=== PATIENT | male | born 1980 | race Caucasian/White ===

== ENCOUNTER 2021-04-27 21:42 | Emergency (ER) | payer OTHER ==
[2021-04-27 21:57] VITALS: BP 125/75
--- NOTE | 2021-04-27 22:30 | ED Physician Documentation ---
History of Present Illness - Stated complaint Stated Complaint: FIT - Chief complaint Chief Complaint: General - History obtained from History obtained from: Patient - Additonal information Additional information: 40yM presents from [facility] for medical evaluation. He was brought in to [facility] 04/27/20 and found to have a left sided ulcer on his lower leg. patient states it has been present for 10 months and he does not have primary care doctor and has not been sure what to do about it. denies fever, numbness, weakness, swelling, ankle pain. Review of Systems Ten Systems: 10 systems reviewed and negative Constitutional: denies: Fever, Chills Skin: reports: Other (ulcer) Musculoskeletal: denies: Extremity pain, Joint pain PD PAST MEDICAL HISTORY - Present Medications Home Medications: Ambulatory Orders Medication Instructions Recorded Confirmed cephALEXin [Keflex] 500 mg PO Q6H #40 tab 04/27/21 - Allergies Allergies/Adverse Reactions: Allergies Allergy/AdvReac Type Severity Reaction Status Date / Time No Known Drug Allergies Allergy Verified 04/27/21 21:55 PD ED PE NORMAL - Vitals Vital signs reviewed: Yes - General General: Alert and oriented X 3, No acute distress, Well developed/nourished - HEENT HEENT: Atraumatic, PERRL, EOMI - Neck Neck: Supple, no meningeal sign - Derm Derm: Normal color, Warm and dry, Other (LLE 4cm diameter chronic venous stasis ulcer with overlying mild cellulitis. 1+ BL DP pulses. sparse hair, shiny consistency to skin of BL LE) - Extremities Extremities: No deformity, Other (1+ DP pulses bilaterally) - Neuro Neuro: No motor deficit, No sensory deficit - Psych Psych: Normal mood, Normal affect Results - Vitals Vitals: Vital Signs - 24 hr 04/27/21 21:55 Temperature 36.5 C Heart Rate 90 Respiratory 16 Rate Blood Pressure 125/75 O2 Saturation 98 Oxygen O2 Source Room air - Labs Labs: Laboratory Tests 04/27/21 22:59 POC Whole Bld Glucose 78 PD MEDICAL DECISION MAKING - ED course ED course: 40yM presents with likely undiagnosed PVD and chronic venous insufficiency ulcer with mild cellulitis. patient will require antibiotics, PMD f/u, vascular and wound care referral. Attempted to call alf medical scribe but no answer. First dose of IM rocephin provided here and sent him to alf with a prepack. Officer on duty was unsure how long he would be in alf, so I advised him if it's longer than 36hours then arrangements will need to be made to continue his antibiotic course. return precautions discussed. symptomatic care also discussed with patient. Departure - Departure Disposition: 01 Home, Self Care Clinical Impression: Chronic cutaneous venous stasis ulcer, Cellulitis Condition: Stable Instructions: ED PVD, ED Ulcer Venous Leg Prescriptions: cephALEXin [Keflex] 500 mg PO Q6H #40 tab Comments: You were seen in the emergency department for evaluation of a chronic venous stasis ulcer. You should follow-up with walk-in clinic or your primary doctor for referral to a vascular surgeon and to [facility]. Make sure that you take your antibiotics as prescribed and fill the prescription for keflex. return to the ED if you are still in alf after the antibiotic bottle we gave you is complete and you are unable to fill your prescription. Return to the Emergency department also if you start to have fevers, any new or worsening symptoms or have other concerns. Discharge Date/Time: 04/27/21 23:18
[2021-04-27] MEDS ORDERED: LIDOCAINE 1% 2 ML VIAL MC ONE (22:33)
[2021-04-27] MEDS ORDERED: cefTRIAXone 1 GM VIAL IM STA (22:33)
[2021-04-27] MEDS ORDERED: CEPHALEXIN 250 MG Prepack 8 CAP BOTTLE PO STA (22:33)
== END 2021-04-27 23:18 | disposition home or self-care (01) ==
LOC: ED 21:42
DX: I83.028 Varicose veins of left lower extremity with ulcer other part of lower leg (principal); L97.828 Non-pressure chronic ulcer of other part of left lower leg with other specified severity; L03.116 Cellulitis of left lower limb
CPT/HCPCS: 96372; 99283